=== PATIENT | female | born 2000 | race Hispanic/Latino ===

== ENCOUNTER 2022-11-20 22:37 | Emergency (ER) | payer BC ==
[~2022-11-20] VITALS: Ht 167.6 cm; Wt 71.2 kg
[2022-11-20] MEDS ORDERED: IBUPROFEN 600 MG TAB PO STA (23:10)
[2022-11-20] MEDS ORDERED: IBUPROFEN 600 MG TAB ONE (23:24)
== END 2022-11-20 23:24 | disposition home or self-care (01) ==
LOC: FSED 22:44
DX: S00.83XA Contusion of other part of head, initial encounter (principal); R51.9 Headache, unspecified; W51.XXXA Accidental striking against or bumped into by another person, initial encounter; Y93.83 Activity, rough housing and horseplay; Y92.89 Other specified places as the place of occurrence of the external cause
CPT/HCPCS: 99282